=== PATIENT | male | born 1985 | race Caucasian/White ===

== ENCOUNTER 2017-08-20 16:47 | Emergency (ER) | payer OTHER ==
[~2017-08-20] VITALS: Ht 185.4 cm; Wt 74.8 kg
[~2017-08-20 16:47] MED LIST: AMOXICILLIN500 M1 PO; ATIVAN1 MG PO; BENTYL 10 MG CA10 M1 PO; FLEXERIL PO; HYDROCODON-ACE1 EAC7 PO; HYDROCODONE-AP1 EAC6 PO; IBUPROFEN 600600 M1 PO; IBUPROFEN 800800 M1 PO; IBUPROFEN 800800 MG PO; LIDOCAINE VISC100 M1 SWISH&SPIT; NAPROSYN500 MG PO; NORCO 5-325 TA1 EAC1 PO; NORCO 5-325 TA1 EACH PO; ONDANSETRON HCL4 M2 PO; PENICILLIN V P500 MG PO; ROBAXIN 750 MG750 M1 PO; VEETIDS 250MG250 M1 PO; WELLBUTRIN SR150 M1 PO
[2017-08-20] MEDS ORDERED: TYLENOL EXTRA500 MG PO (17:29)
[2017-08-20] MEDS ORDERED: NAPROSYN500 MG PO (18:25)
[2017-08-20] MEDS ORDERED: FLEXERIL PO (18:25)
[2017-08-20 18:39] VITALS: BP 97/64
== END 2017-08-20 18:39 | disposition home or self-care (01) ==
LOC: M.ERS 16:47
DX: M43.6 Torticollis (principal); M19.90 Unspecified osteoarthritis, unspecified site; F17.210 Nicotine dependence, cigarettes, uncomplicated